=== PATIENT | female | born 1960 | race Caucasian/White ===

== ENCOUNTER 2016-08-02 11:51 | Emergency (ER) | payer OTHER, MEDICARE ==
[~2016-08-02] VITALS: Ht 162.6 cm; Wt 74.8 kg
[~2016-08-02 11:51] MED LIST: PERCOCET 325 MG1 TA3 PO
--- NOTE | 2016-08-02 13:33 | Emergency Room Report ---
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 N Clinical Suspician of Infection? N Mental Status: 1 - Regular (Normal Baseline) Sepsis Risk:Low Sepsis Risk Have you (or family members/close friends) recently traveled outside the [place]? N If Yes, where/when: Have you had exposure to infectious disease within the past month? TB? Other? Specify: Comment Patient complains of RIGHT lower back pain for 3 days. No injury or trauma remembered. The pain does not radiate down her legs and she has no numbness or weakness. No vomiting, fever, or urinary symptoms. No loss of bowel or bladder control. She has a history of chronic back problems and has had 2 back surgeries, the most recent 5 years ago. She has a chronic RIGHT foot drop ever since then. She takes Flexeril for flareups of back pain, which she has been taking for the past 3 days, one half tablet at a time, but it makes her very drowsy. ALLERGIES Coded Allergies: No Known Allergies (08/02/16) Home Medications Active Scripts OXYCODONE 7.5MG/[id number] (Oxycodon-Acetaminophen 7.5-325) 1 TAB PO Q6H PRN 3 Days Prov: 10/06/09 History Medical History General Angina: No NV: No Hypertension? Yes Hyperlipidemia? No COPD? No Asthma? No CVA? No Seizures? No Diabetes? No GB Disease: No MRSA? No TB? No Cancer? 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 Psychiatric/Neurological see HPI Physical Exam Vital Signs Vital Signs Date Time Temp Pulse Resp B/P Pulse O2 O2 Flow FiO2 Ox Delivery Rate 08/02 1201 98.3 78 18 160/100 98 08/02 1157 98.6 78 18 160/100 98 General Appearance normal appearance Respiratory Status No: respiratory distress. Cardiovascular regular rate/rhythm, normal peripheral pulses Gastrointestinal non tender, no pulsatile mass Back lumbar surgical scar. RIGHT paraspinous lumbar tenderness. Neurologic alert, RIGHT foot drop, chronic Reflexes Comment 1+ patellar, 0+ Achilles, bilaterally symmetric Medical Decision Making LABS/Meds/Orders Pt receiving controlled substance in ED? No Mark was queried for this patient? Yes Reference #: [id number] Results/Orders 4 rxs. all clonazepam Progress - I estimate there is LOW risk for ABDOMINAL AORTIC ANEURYSM, ACUTE AORTIC DISSECTION, CAUDA EQUINA SYNDROME, EPIDURAL MASS LESION, OR CORD COMPRESSION, thus I consider the discharge disposition reasonable. Departure Departure Disposition DC Home or Self Care(routine) Clinical Impression Primary Impression: Low back pain Qualifiers: Chronicity: acute Back pain laterality: right Sciatica presence: without sciatica Qualified Code: M54.5 - Low back pain Condition STABLE Patient Instructions DI for Low Back Pain Additional Instructions Try Skelaxin instead of Flexeril. Additional instructions for BACK PAIN: See your physician as soon as possible for further evaluation. Return immediately if back pain becomes intolerable, or if fever, numbness or weakness of your legs, loss of control of your bowels or bladder. Prescriptions Current Visit Scripts Metaxalone (Skelaxin 800MG Tab) 800 MG PO TID #20 TAB Methylprednisolone (Medrol Dose Jorge) 4 MG PO UD #1 JORGE TAKE DIRECTED ON PACKAGING ED Critical Care Critical Care No at 1344
--- NOTE | 2016-08-02 13:33 | Emergency Room Report ---
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 N Clinical Suspician of Infection? N Mental Status: 1 - Regular (Normal Baseline) Sepsis Risk:Low Sepsis Risk Have you (or family members/close friends) recently traveled outside the [place]? N If Yes, where/when: Have you had exposure to infectious disease within the past month? TB? Other? Specify: Comment Patient complains of RIGHT lower back pain for 3 days. No injury or trauma remembered. The pain does not radiate down her legs and she has no numbness or weakness. No vomiting, fever, or urinary symptoms. No loss of bowel or bladder control. She has a history of chronic back problems and has had 2 back surgeries, the most recent 5 years ago. She has a chronic RIGHT foot drop ever since then. She takes Flexeril for flareups of back pain, which she has been taking for the past 3 days, one half tablet at a time, but it makes her very drowsy. ALLERGIES Coded Allergies: No Known Allergies (08/02/16) Home Medications Active Scripts OXYCODONE 7.5MG/[id number] (Oxycodon-Acetaminophen 7.5-325) 1 TAB PO Q6H PRN 3 Days Prov: 10/06/09 History Medical History General Angina: No MA: No Hypertension? Yes Hyperlipidemia? No COPD? No Asthma? No CVA? No Seizures? No Diabetes? No GB Disease: No MRSA? No TB? No Cancer? 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 Psychiatric/Neurological see HPI Physical Exam Vital Signs Vital Signs Date Time Temp Pulse Resp B/P Pulse O2 O2 Flow FiO2 Ox Delivery Rate 08/02 1201 98.3 78 18 160/100 98 08/02 1157 98.6 78 18 160/100 98 General Appearance normal appearance Respiratory Status No: respiratory distress. Cardiovascular regular rate/rhythm, normal peripheral pulses Gastrointestinal non tender, no pulsatile mass Back lumbar surgical scar. RIGHT paraspinous lumbar tenderness. Neurologic alert, RIGHT foot drop, chronic Reflexes Comment 1+ patellar, 0+ Achilles, bilaterally symmetric Medical Decision Making LABS/Meds/Orders Pt receiving controlled substance in ED? No Mark was queried for this patient? Yes Reference #: [id number] Results/Orders 4 rxs. all clonazepam Progress - I estimate there is LOW risk for ABDOMINAL AORTIC ANEURYSM, ACUTE AORTIC DISSECTION, CAUDA EQUINA SYNDROME, EPIDURAL MASS LESION, OR CORD COMPRESSION, thus I consider the discharge disposition reasonable. Departure Departure Disposition DC Home or Self Care(routine) Clinical Impression Primary Impression: Low back pain Qualifiers: Chronicity: acute Back pain laterality: right Sciatica presence: without sciatica Qualified Code: M54.5 - Low back pain Condition STABLE Patient Instructions DI for Low Back Pain Additional Instructions Try Skelaxin instead of Flexeril. Additional instructions for BACK PAIN: See your physician as soon as possible for further evaluation. Return immediately if back pain becomes intolerable, or if fever, numbness or weakness of your legs, loss of control of your bowels or bladder. Prescriptions Current Visit Scripts Metaxalone (Skelaxin 800MG Tab) 800 MG PO TID #20 TAB Methylprednisolone (Medrol Dose Jorge) 4 MG PO UD #1 JORGE TAKE DIRECTED ON PACKAGING ED Critical Care Critical Care No at 1340
[2016-08-02] MEDS ORDERED: MEDROL 4MG. DOSE4 MG PO (13:47)
[2016-08-02] MEDS ORDERED: SKELAXIN 800MG800 MG PO (13:47)
[2016-08-02 14:04] VITALS: BP 160/100
== END 2016-08-02 14:04 | disposition home or self-care (01) ==
LOC: ER 11:51
DX: M54.5 Low back pain (principal); I10 Essential (primary) hypertension

== ENCOUNTER 2017-04-15 14:13 | Emergency (ER) | payer OTHER, MEDICARE ==
[~2017-04-15] VITALS: Ht 162.6 cm; Wt 81.6 kg
[~2017-04-15 14:13] MED LIST changes: +AUGMENTIN 875-1 EACH PO; +BROMFED DM COU118 ML PO; +CLONAZEPAM 1MG T1 MG PO; +EFFEXOR XR 75MG75 MG PO; +FLEXERIL10 MG PO; +FLONASE 50 MCG16 GM; +LISINOPRIL 5MG T5 MG PO; +MEDROL 4MG. DOSE4 MG PO; +SKELAXIN 800MG800 MG PO; +VOLTAREN 25MG T25 MG PO
--- NOTE | 2017-04-15 14:28 | Emergency Room Report ---
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 Clinical Suspician of Infection? Mental Status: Sepsis Risk: Have you (or family members/close friends) recently traveled outside the [place]? If Yes, where/when: Have you had exposure to infectious disease within the past month? TB? Other? Specify: Patient with chronic numbness and foot drop on right due to prior lumbar problem. She was lifting laundry today and accidentally turned her foot. She now has pain over the proximal foot dorsally, radiating to her distal pretibial area. No discoloration. She has chronic numbness to the right foot. No new weakness today but a lot of pain with WB. ALLERGIES Coded Allergies: cephalexin (From KEFLEX) (I-RASH 04/15/17) Home Medications Active Scripts Amoxicillin/Potassium Clav (Augmentin 875-125 Tablet) 1 EACH PO BID #20 TAB Prov: 12/30/16 Fluticasone Propionate (Flonase 50 Mcg Nasal [place]) 2 SPRAY NA DAILY #1 BOT Prov: 12/30/16 D-METHORPHAN HB/P-EPD HCL/BPM (Bromfed Dm Cough Syrup) 10 ML PO QIDP PRN cough #240 ML Prov: 12/30/16 Reported Medications LISINOPRIL (Lisinopril) 5 MG PO DAILY Venlafaxine Hydrochloride (Effexor XR 75MG) (Unknown Dose) PO DAILY Diclofenac Sodium (Voltaren 25MG Tablet) (Unknown Dose) PO BID Cyclobenzaprine Hcl (Flexeril) 5 MG PO TIDP PRN MUSCLE SPASMS Clonazepam (Clonazepam 1MG) 1 MG PO BIDP PRN ANXIETY History Medical History General CAD? No Angina: No [place]: No Hypertension? Yes Hyperlipidemia? No CHF? No DVT? No PE? No COPD? No Asthma? No Anemia? No GERD? No Gastric ulcers? No GI Bleed? No Hernia? No Thyroid Problems? No Hypothyroidism? No CVA? No Seizures? No Diabetes? No Renal Insuffiency? No End Stage Renal Disease? No UTI? No Stones? No BPH? No GB Disease: No Nephritic Syndrome? No Asplenia? No Hepatitis? No Sickle Cell Disease? No Arthritis? Yes Migraines? No Cataracts? No Glaucoma? No MRSA? No HIV? No TB? No Anxiety? Yes Depression? Yes Cancer? No More? 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 No: respiratory distress. Cardiovascular no peripheral edema, normal peripheral pulses Extremities normal range of motion, normal inspection, normal capillary refill, no pedal edema, Pain to right foot and ankle diffusely, w/o crepitus, deformity, ecchymosis or stepoff; no rotation or laxity. DP and PT pulses full. Baseline has numbness to right foot. No nail involvement. Toes are slightly cool (she states they are always like this) but well perfused with brisk CR. , Patient arrives using a "rollator". Neurologic alert, normal exam (no acute motor deficits), sensory deficit ( baseline sensory deficit ) Glascow Coma Scale Glascow Coma Scale Response Value EYE response: 4 Spontaneously 4 MOTOR response: 6 OBEYS 6 VERBAL response: 5 Oriented & Converses 5 Total 15 Medical Decision Making LABS/Meds/Orders Pt receiving controlled substance in ED? No Results/Orders Current Medication Orders Sig/Isi Start time Last Medication Dose Route Stop Time Status Admin Ketorolac 60 MG ONCE ONE 04/15 1430 DC 04/15 Tromethamine IM 04/15 1431 1426 Ketorolac 0 .STK-MED ONE 04/15 1425 DC Tromethamine .ROUTE Orders Procedure Date/time Status STABILIZE JOINT 04/15 1504 Active FOOT-RT-3 VIEWS 04/15 1421 Active ANKLE-RT-3 VIEWS 04/15 1421 Active XRAY/CT/US XRAY/CT/US XRAY ankle, foot XR interpretation by reviewed by me Xray Results normal/NAD (calc. spur; talus nl neg fx), no fracture seen Departure Departure Time of Disposition 1501 Disposition DC Home or Self Care(routine) Clinical Impression Primary Impression: Other sprain of right foot, initial encounter Condition STABLE Patient Instructions DI for Foot Sprain Additional Instructions See Dr. 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 Pyle; Rx Naproxen. Discharge Counseling Counseled pt/family regarding diagnosis, test results, medications/RX, home care Prescriptions Current Visit Scripts NAPROXEN (NAPROXEN 500MG TAB) 500 MG PO BIDP PRN pain #20 TAB ED Critical Care Critical Care No at 1504
--- OUTSIDE RECORDS SUMMARY | 2017-04-15 14:35 | External Medical Summary Rpt | CCD ---
Author Author , ZAK CRESPO Address Unknown Phone [email or web address] Purpose Continuity of Care Document - 11-04-2016 through 2016 Problems Code Diagnosis DOS Provider Status D64.9 ANEMIA, UNSPECIFIED E03.9 HYPOTHYROID ISM, UNSPECIFIED E78.4 OTHER HYPERLIPIDE BHAVANA M54.5 LOW BACK PAIN
--- OUTSIDE RECORDS SUMMARY | 2017-04-15 14:35 | External Medical Summary Rpt | CCD ---
Author Author , ZAK CRESPO Address Unknown Phone [email or web address] Purpose Continuity of Care Document - 11-04-2016 through 2016 Problems Code Diagnosis DOS Provider Status D64.9 ANEMIA, UNSPECIFIED E03.9 HYPOTHYROID ISM, UNSPECIFIED E78.4 OTHER HYPERLIPIDE BHAVANA M54.5 LOW BACK PAIN
--- OUTSIDE RECORDS SUMMARY | 2017-04-15 14:36 | External Medical Summary Rpt | CCD ---
Demographics Preferred Language Northern Irish Marital Status Unknown Yazdanism Affiliation Unknown Race Unknown Ethnic Group Unknown Author Author , ZAK CRESPO Address Unknown Phone Immunization Unable to retrieve immunization data due to connection failure with Immunization Registry. Please try again later.
--- OUTSIDE RECORDS SUMMARY | 2017-04-15 14:36 | External Medical Summary Rpt | CCD ---
Demographics Preferred Language [place] Islander Marital Status Unknown Alevism Affiliation Unknown Race Unknown Ethnic Group Unknown Author Author , ZAK CRESPO Address Unknown Phone Immunization Unable to retrieve immunization data due to connection failure with Immunization Registry. Please try again later.
--- OUTSIDE RECORDS SUMMARY | 2017-04-15 14:37 | External Medical Summary Rpt ---
Author Author [employer]AK [employer], [employer] Organization [employer] Address Unknown Phone Unavailable Results Comprehensive metabolic 2000 panel in Serum or Plasma Observa Value Referen Units Interpr Notes Date tion ce etation Range Albumin/G 1.1 - 1.8 No Normal No November 04 lobulin informati informati 2016 7:38 [Mass on in on in AM ratio] in source source Serum or data data Plasma Albumin 3.4 - 5.0 gm/dL Normal No November 04 [Mass/vol informati 2016 7:38 ume] in on in AM Serum or source Plasma data Alkaline 46 - 116 U/L High No November 04 phosphata informati 2016 7:38 se on in AM [Enzymati source c data activity/ volume] in Serum or Plasma Bilirubin 0.2 - 1.0 mg/dL Normal No November 04 .total informati 2016 7:38 [Mass/vol on in AM ume] in source Serum or data Plasma Urea 7 - 18 mg/dL Normal No November 04 nitrogen informati 2016 7:38 [Mass/vol on in AM ume] in source Serum or data Plasma Calcium 8.5 - mg/dL Normal No November 04 [Mass/vol 10.1 informati 2016 7:38 ume] in on in AM Serum or source Plasma data Chloride 98 - 107 mmoL/L Normal No November 04 [Moles/vo informati 2016 7:38 lume] in on in AM Serum or source Plasma data Carbon 21.0 - mmoL/L Normal No November 04 dioxide, 32.0 informati 2016 7:38 total on in AM [Moles/vo source lume] in data Serum or Plasma Creatinin 0.55 - mg/dL Normal No November 04 e 1.02 informati 2016 7:38 [Mass/vol on in AM ume] in source Serum or data Plasma Estimated 59- ML/MIN No REFERENCE November 04 informati RANGE: 2017 7:38 glomerula on in >60 AM r source ML/MIN/1. filtratio data 73 SQUARE n rate METERSIf (GF this patient is -A merican, then multiply theresult by 1.210. Globulin 1.3 - 3.2 gm/dL High No November 04 [Mass/vol informati 2016 7:38 ume] in on in AM Serum source data Glucose 74 - 106 mg/dL High No November 04 [Mass/vol informati 2016 7:38 ume] in on in AM Serum or source Plasma data Potassium 3.5 - 5.1 mmoL/L Normal No November 04 informati 2016 7:38 [Moles/vo on in AM lume] in source Serum or data Plasma Sodium 136 - 145 mmoL/L Normal No November 04 [Moles/vo informati 2016 7:38 lume] in on in AM Serum or source Plasma data Aspartate 15 - 37 U/L High No November 04 informati 2016 7:38 aminotran on in AM sferase source [Enzymati data c activity/ volume] in Serum or Plasma Alanine 12 - 78 U/L High No November 04 aminotran informati 2016 7:38 sferase on in AM [Enzymati source c data activity/ volume] in Serum or Plasma Protein 6.4 - 8.2 gm/dL Normal No November 04 [Mass/vol informati 2016 7:38 ume] in on in AM Serum or source Plasma data Lipid 1996 panel in Serum or Plasma Observa Value Referen Units Interpr Notes Date tion ce etation Range Cholester < 200 mg/dL No No November 04 ol informati informati 2016 7:38 [Moles/vo on in on in AM lume] in source source Unspecifi data data ed specimen Cholester 40 - 60 MG/DL Normal No November 04 ol in HDL informati 2016 7:38 on in AM [Mass/vol source ume] in data Serum or Plasma Cholester 0 - 130 mg/dL Normal No November 04 ol in LDL informati 2016 7:38 on in AM [Mass/vol source ume] in data Serum or Plasma by jeremiah on Triglycer 30 - 200 mg/dL Normal No November 04 keaton informati 2016 7:38 [Moles/vo on in AM lume] in source Serum or data Plasma Cholester 0 - 40 No Normal November 04 ol in informati informati 2016 7:38 VLDL on in on in AM [Mass/vol source source ume] in data data Serum or Plasma Thyrotropin [Units/volume] in Serum or Plasma Observa Value Referen Units Interpr Notes Date tion ce etation Range Thyrotrop 0.358 - uIU/ml Normal No November 04 in 3.740 informati 2016 7:38 [Units/vo on in AM lume] in source Serum or data Plasma CBC W Auto Differential panel in Blood Observa Value Referen Units Interpr Notes Date tion ce etation Range Basophils 0 - 0.2 K/MM3 Normal No November 04 informati 2016 7:38 [#/volume on in AM ] in source Blood by data Automated count Basophils 0.1 - 2.0 % Normal No November 04 informati 2016 7:38 leukocyte on in AM s in source Blood by data Automated count Eosinophi 0.0 - 0.4 K/mm3 Normal No November 04 ls informati 2016 7:38 [#/volume on in AM ] in source Blood by data Automated count Eosinophi 0.1 - % Normal No November 04 ls/100 12.0 informati 2016 7:38 leukocyte on in AM s in source Blood by data Automated count Granulocy 1.8 - 7.8 K/mm3 Normal No November 04 dejan informati 2016 7:38 [#/volume on in AM ] in source Blood by data Automated count Granulocy 37.0 - % Normal No November 04 dejan/100 80.0 informati 2016 7:38 leukocyte on in AM s in source Blood by data Automated count Hematocri 37.0 - % Normal No November 04 t [Volume 47.0 informati 2016 7:38 on in AM Fraction] source of Blood data Hemoglobi 12.2 - g/dL Normal No November 04 n 16.2 informati 2016 7:38 [Mass/vol on in AM ume] in source Blood data Lymphocyt 0.7 - 4.5 K/mm3 Normal No November 04 es informati 2016 7:38 [#/volume on in AM ] in source Unspecifi data ed specimen by Automated count Lymphocyt 10 - 50.0 % Normal No November 04 es informati 2016 7:38 [#/volume on in AM ] in source Unspecifi data ed specimen by Automated count Erythrocy 27 - 31.2 pg Normal No November 04 te mean informati 2016 7:38 corpuscul on in AM ar source hemoglobi data n [Entitic mass] Erythrocy 31.8 - g/dl Normal No November 04 te mean 35.4 informati 2016 7:38 corpuscul on in AM ar source hemoglobi data n concentra tion [Mass/vol ume] by Automated count Erythrocy 82.2 - fl Normal No November 04 te mean 97.8 informati 2016 7:38 corpuscul on in AM ar volume source [Entitic data volume] by Automated count Monocytes 0.1 - 1.0 K/mm3 Normal No November 04 informati 2016 7:38 [#/volume on in AM ] in source Blood by data Automated count Monocytes 1.7 - 9.3 % Normal No November 04 informati 2016 7:38 leukocyte on in AM s in source Blood by data Automated count Platelet 7.4 - fl Low No November 04 mean 10.4 informati 2016 7:38 volume on in AM [Entitic source volume] data in Blood by Automated count Platelets 142 - 424 K/mm3 Normal No November 04 informati 2016 7:38 [#/volume on in AM ] in source Blood data Erythrocy 4.2 - 5.4 M/mm3 Normal No November 04 dejan informati 2016 7:38 [#/volume on in AM ] in source Amniotic data fluid Erythrocy 11.5 - % Normal No November 04 te 17.5 informati 2016 7:38 distribut on in AM ion width source [Entitic data volume] by Automated count Leukocyte 4.8 - K/MM3 Normal No November 04 s 10.8 informati 2016 7:38 [#/volume on in AM ] in source Blood data
[2017-04-15] MEDS ORDERED: NAPROXEN SODIU500 MG PO (15:04)
[2017-04-15 15:13] VITALS: BP 152/98
--- NOTE | 2017-04-15 15:15 | RADIOLOGY REPORT PS360 ---
FOOT-RT-3 VIEWS, ANKLE-RT-3 VIEWS HISTORY: turned ankle and foot right ankle and right foot pain Patient Age: 56 years: Female Ordering Physician: Florencia Terrell MD TECHNIQUE: 3 views right foot. 3 views right ankle. COMPARISON :Right foot from 11/01/2016. === RIGHT FOOT 3 VIEWS No acute fracture is seen at the right foot. The toes appear similar. Again we note the osseous density at lateral aspect of second MTP joint which may reflect a small old fracture fragment off the lateral corner of proximal phalanx base second toe. The metatarsals intact. thin plantar calcaneal spur 6 mm length. == RIGHT ANKLE 3 VIEWS: Right ankle mortise intact. Joint spaces well-maintained. Dome of talus intact. Medial lateral and posterior malleolus intact. 6 mm Plantar calcaneal spur again noted. With slight lucency at the anterior margin of tibia on believe is merely related to the contour of the overlapping fibula IMPRESSION: Right ankle intact with No acute findings.
== END 2017-04-15 15:15 | disposition home or self-care (01) ==
LOC: ER 14:13
DX: S93.601A Unspecified sprain of right foot, initial encounter (principal); S96.911A Strain of unspecified muscle and tendon at ankle and foot level, right foot, initial encounter; X50.1XXA Overexertion from prolonged static or awkward postures, initial encounter; Y92.019 Unspecified place in single-family (private) house as the place of occurrence of the external cause; Z88.1 Allergy status to other antibiotic agents; I10 Essential (primary) hypertension; F41.8 Other specified anxiety disorders

== ENCOUNTER → 2017-04-19 | Outpatient (CLI) | payer OTHER, MEDICARE ==
[~2017-04-19] MED LIST changes: +NAPROXEN SODIU500 MG PO
--- NOTE | 2017-04-19 16:28 | RADIOLOGY REPORT PS360 ---
CT EXT.LOWER-RT-W/O CONTRAST INDICATION: Pain following injury, follow-up fracture, fracture evaluation of the medial cuneiform RT AVULSION FX MEDIAL CUNEIFORM ORDERING PHYSICIAN: NETO CACERES DPM PATIENT AGE: 56 years COMPARISON: Radiograph of 04/18/2017 TECHNIQUE: Axial images are obtained without contrast. Sagittal and coronal reformatted images are reviewed as well. FINDINGS: There is avulsion fracture involving the medial aspect of the first cuneiform along with the lateral aspect of the second cuneiform. The avulsion fracture fragment measures up to 18 mm in AP dimension. There are however multiple small fragments which are felt to arise from both the first and second cuneiforms at the joint space between the first and second cuneiforms. There is mild widening of the space between the first and second cuneiforms by approximately 4 mm. Although the Lisfranc ligaments are not visualized they may very well be compromised secondary to the area of the fractures and the mild widening of the joint space. In addition, there is a small avulsion fracture along the dorsal distal aspect of the first cuneiform and along the proximal and plantar aspect of the first metacarpal. There is an oblique nondisplaced fracture involving the base of the first metatarsal. Nondisplaced avulsion fractures are present along the dorsal aspect and lateral aspect of the third cuneiform and along the dorsal and lateral aspect of the cuboid. There is an oblique nondisplaced fracture of the base of the fourth metatarsal medially. There is mild generalized soft tissue swelling. IMPRESSION: 1. Multiple foot fractures as described above involving the first, second, and third cuneiforms as well as the first metatarsal and the base of the fourth metatarsal as well as the cuboid. Please above for detailed description. 2. There is mild widening of the space between the base of the second metatarsal and the first cuneiform with avulsion fractures in this area raising the suspicion of injury to the Lisfranc ligaments. The alignment between the base of the second metatarsal and second cuneiform is preserved.
== END ==
LOC: RAD 13:00
DX: S92.241A Displaced fracture of medial cuneiform of right foot, initial encounter for closed fracture (principal)

== ENCOUNTER 2017-04-28 08:33 | Day surgery (SDC) | payer OTHER, MEDICARE ==
[~2017-04-28] VITALS: Ht 160 cm; Wt 90.7 kg
--- NOTE | 2017-04-28 15:47 | Anesthesia Record ---
Anesthesia Record Part I Total IV fluids: 1800 EBL (ml): 0 Urine Output: 0 B/P: 121/82 % SaO2: 92 Pulse: 112 Resps: 12 Temp: 98.1 Patient is: Awake, Stable Stable to PACU at: 1545 at 1544
--- NOTE | 2017-04-28 15:48 | Anesthesia Record ---
Anesthesia Record Part II Discharge time: 1615 Destination: Same day surgery PACU nurse assessment review? Yes Patient is: Awake, Stable Anesthesia complications? No at 1959
--- NOTE | 2017-04-28 17:05 | Operative Note-Podiatry ---
Procedure/Operative Record Procedure DATE OF PROCEDURE 04/28/17 PREOPERATIVE DIAGNOSIS Right LisFranc Fracture, LisFranc Ligament Sprain Right 1st-3rd cuneiform fractures Right 1st-2nd metatarsal base fractures Right nondisplaced 4th metatarsal base and cuboid fractures Right Equinus (Dropfoot deformity) POSTOPERATIVE DIAGNOSIS Same as Preop Dx PROCEDURE PERFORMED Right Open Reduction Internal Fixation LisFranc (2nd met-medial cuneiform) Right 1st Tarsometatarsal Arthrodesis Right 2nd Tarsometatarsal Arthrodesis Right Partial Tendo Achilles Lengthening SURGEON Veronica Sarabia DPM ANESTHESIA General Right popliteal block EBL (ml) 30 OPERATIVE NOTE/DISCHARGE/PLAN Indication for Procedure: Ms. Licea is a 56 y/o female who was doing laundry 04/15/17 and was carrying a laundry basket and tripped. Her right foot planted and twisted. Patient had immediate pain and was unable to weight-bear. Patient with chronic numbness and foot drop on right due to prior lumbar problem. X-rays and CT scan from 04/19/17 show: Multiple foot fractures involving the first, second, and third cuneiforms, first metatarsal and the base of the fourth metatarsal and the cuboid. There is mild widening of the space between the base of the second metatarsal and the first cuneiform with avulsion fractures in this area raising the suspicion of injury to the Lisfranc ligaments. Discussed the x-rays and CT with the patient. Conservative treatment discussed but not recommended. We discussed surgery. I discussed risks and benefits of doing TMT ORIF versus primary arthrodesis. All risks and benefits were discussed including but not limited to: damage to blood vessels and nerves, bleeding, infection, wound complications, delayed or non-union of bone, post-traumatic arthritis, need for further surgery, need for removal of the implant, prolonged swelling of the extremity, prolonged pain, RSD/CRPS, DVT, and anesthetic complications. No guarantees were given. All questions fully answered. The patient verbalized understanding and agreed to proceed with surgery. Patient has verbalized understanding of ORIF but if comminution or joint damage is moderate- severe, I will convert to a primary fusion. We also discussed the dropfoot. I explained that in order to fix that she would need a full neurological workup including nerve conduction studies which we can do at a later time to evaluate if she is a candidate for a tendon transfer versus ankle fusion. We discussed doing a partial Achilles lengthening to reduce some of the equinus contracture and stabilizing in an AFO until neurological workup can be obtained. Consent was obtained. On this date and time patient was deemed an appropriate surgical candidate. With informed consent signed, the patient was taken to the operating theater. The patient was positioned supine. General anesthesia was induced. Tourniquet was applied to the right thigh at 250 mmHg. Right Partial Tendo Achilles Lengthening: Attention was directed to the posterior leg. Two stab incisions where made overlying the Achilles. Utilizing the two holes, percutaneous lulu-section of the Achilles was performed with the foot maximally dorsiflexed. Some release of the Achilles contracture was noted. The incisions were flushed with copious amounts of sterile saline and the wound was closed with 4-0 Nylon. Right 1st Tarsometatarsal Arthrodesis: The right lower extremity was prepped and draped in normal sterile fashion. Attention was directed to the 1st metatarsocuneiform joint (MCJ) where a medial dorsal linear incision was mapped out over the joint. The tourniquet was inflated at 250 mmHg. Dissection was carried thru skin and subcutaneous tissue with care taken to maintain surgical hemostasis and safely retract neurovascular structures. Dissection was then carried through deep fascia, exposed the MCJ. Increased sagittal plane ROM was appreciated, as well as instability of the LisFranc complex. Right 2nd Tarsometatarsal Arthrodesis: Attention was directed to the 2nd metatarsocuneiform joint when a dorsal linear incision was mapped out under intra-op fluoroscopy. Dissection was carried thru skin and subcutaneous tissue with care taken to maintain surgical hemostasis and safely retract neurovascular structures. Dissection was then carried through deep fascia, exposed the 2nd TMT. The LisFranc ligament was identified and noted to be completely torn and there was instability noted. Using saw then hand resection with osteotome and currettes, the cartilage was removed from the 1st and 2nd met bases and distal 1-2nd cuneiforms. The cartilage between the 1-2nd cuneiforms was also removed. The wound was flushed with copious amounts of saline. 2.0 drill bit was used to fenestrate the subchondral bone plate to good healthy bleeding bone. Right Open Reduction Internal Fixation LisFranc Joint (2nd met-medial cuneiform) : At this point, the LisFranc joint was reduced and temporary fixation inserted across the 1st and 2nd TMT. Position was checked under intra-op fluoroscopy. CL3VERte LisFranc system used. The jig was inserted into the medial cuneiform medially and around the 2nd met base laterally. X-rays was used to check reduction of the deformity and positioning. Using standard technique, the joint was compression and a solid screw inserted. Good compression noted across the 2nd MCJ. Another screw was inserted medial to lateral from 1st to 2nd cuneiforms. Good apposition and position was noted. X- ray confirmed position and hardware was adequate. The wound was flushed. At this point, attention was directed to the 1st TMT where Tensix putty was inserted into the joint. It was held in reduced position and two [employer] medical compression maliha were inserted. The first TMT was slightly plantarflexed. Attention was directed to the 2nd TMT, where a 15mm staple was inserted. Good compression and apposition noted. Final intra op x-ray used to confirm reduction and fusion position. The wound was once again flushed with copious amounts of saline. 3-0 Vicryl was used to close deep tissue. 4-0 Vicryl was used to close subq layer in a running fashion. Viaflow was inserted into the incision. Then the skin was closed with 4-0 Nylon in an interrupted mattress fashion. 30 cc 0.5 % marcaine plain used in a regional ankle block. The tourniquet was deflated after 120 mins and immediate hyperemic response was noted to the digits. The wounds were cleansed. Xeroform, dry sterile dressing and posterior splint was then applied. The patient was awoken from anesthesia and transferred to recovery with vital signs stable and neurovascular status intact. Materials: [employer] LisFranc 3.7mm screw x 2 Wrt Medical Compression maliha x 3 (size 15 x 2, 25) Viaflow, Tensix putty Discharge/Plan: D/C home today when ready and vital signs stable. Patient is to maintain dressing and splint clean dry and intact. Ice top or right foot and elevate on two pillows. Non weight bearing to the right lower extremity with rolling walker. Rx for Percocet 7.5 #28, Zofran, Motrin given. Obtain post op films, right foot, 3 views. Follow up with me in 1 week. at [id number]
[2017-04-28 17:52] VITALS: BP 125/79
--- NOTE | 2017-05-02 10:25 | RADIOLOGY REPORT PS360 ---
FOOT-RT-3 VIEWS postop Ordering Physician: NETO CACERES DPM Patient Age: 56 years: Female HISTORY: POSTOP LISFRANC INJURY TECHNIQUE: 3 views right foot COMPARISON :3 views right foot 04/18/[address] foot I believe from approximately 04/19/2017 FINDINGS The patient has undergone surgery to address the Lisfranc injury and fractures. 2 screws, along with dorsal fixation maliha which now provide fixation between the base of the first and second metatarsal as well as the associated adjacent cuneiform bones. The dorsal placedfixation maliha seen providing fixation to the second tarsometatarsal joint as well as another at first tarsal metatarsal joint. Screw entering medially at the medial cuneiform. Another Oblique screw enters medially and passes through the base of the second metatarsal A plaster splint cast is placed posteriorly and partially obscuring osseous detail. However there do appear to be better relationships versus prior study, with less widening at the base between the first and second metatarsal base with satisfactory relationships at associated cuneiforms. IMPRESSION: ORIF procedure to address Lisfranc injury/and fracture.. There has been fixation between the base of the first & second metatarsal, as well as involving the associated medial & intermediate cuneiforms.Posterior plaster cast splint now in place
--- NOTE | 2017-05-08 09:43 | RADIOLOGY REPORT PS360 ---
FOOT-RT-2 VIEWS HISTORY: ORIF Patient Age: 56 years: Female Ordering Physician: NETO CACERES DPM Patient Age: 56 years: Female HISTORY: POSTOP LISFRANC INJURY TECHNIQUE: 2 views right foot COMPARISON :3 views right foot preop 04/18/[address] right foot 04/19/2017 FINDINGS The patient has undergone surgery to address the Lisfranc injury and fractures. 2 screws, along with dorsal fixation maliha which now provide fixation between the base of the first and second metatarsal as well as the associated adjacent cuneiform bones. The dorsal placedfixation maliha seen providing fixation to the second tarsometatarsal joint as well as another dorsal stable healing fixation at first tarsal metatarsal joint. Screw entering medially at the medial cuneiform. Another Oblique screw enters medially and passes through the base of the second metatarsal A plaster splint cast is placed posteriorly and partially obscuring osseous detail. However there do appear to be better relationships versus prior study, with less widening at the base between the first and second metatarsal base with satisfactory relationships at associated cuneiforms. IMPRESSION: ORIF procedure to address Lisfranc injury/and fractures.. Now evident
== END 2017-04-28 17:25 | disposition home or self-care (01) ==
LOC: SDC 08:33
PROVIDERS: Podiatrist
PROC: 0SGK0KZ Fusion of Right Tarsometatarsal Joint with Nonautologous Tissue Substitute, Open Approach (ICD-10-PCS; 2017-04-28)
PROC: 0SGK04Z Fusion of Right Tarsometatarsal Joint with Internal Fixation Device, Open Approach (ICD-10-PCS; 2017-04-28)
PROC: 0SSK04Z Reposition Right Tarsometatarsal Joint with Internal Fixation Device, Open Approach (ICD-10-PCS; 2017-04-28)
PROC: 0L8N3ZZ Division of Right Lower Leg Tendon, Percutaneous Approach (ICD-10-PCS; principal; 2017-04-28 10:45)
DX: S92.591A Other fracture of right lesser toe(s), initial encounter for closed fracture (principal); S92.214A Nondisplaced fracture of cuboid bone of right foot, initial encounter for closed fracture; W18.49XA Other slipping, tripping and stumbling without falling, initial encounter; Y93.E2 Activity, laundry; Y92.9 Unspecified place or not applicable; I10 Essential (primary) hypertension; M21.371 Foot drop, right foot; R20.2 Paresthesia of skin; S93.621A Sprain of tarsometatarsal ligament of right foot, initial encounter; Z88.3 Allergy status to other anti-infective agents; Z79.899 Other long term (current) drug therapy
CPT/HCPCS: C1713; C1762; C1776; J2405